=== PATIENT | female | born 1975 | race Caucasian/White ===

== ENCOUNTER 2019-01-24 06:23 | Inpatient (IN) | payer OTHER ==
[2019-01-24] MEDS ORDERED: Sodium Chloride 0.9% 10 ML ONE (06:56)
[2019-01-24] MEDS ORDERED: Midazolam HCl 2 mg/2 ml Vial ONE (07:48)
[2019-01-24 07:57] LABS: #Basophils 0.1 thou/uL (0.0-0.2); #Eosinphils 0.5 thou/uL (0.0-0.7); #Monocytes 0.6 thou/uL (0.11-0.59); #Neutrophils 5.3 thou/uL (1.40-6.50); %Basophils 1.2 % (0.0-1.0); %Eosinophils 4.8 % (0.0-10.0); %Lymphocytes 31.3 % (21.0-51.0); %Monocytes 6.3 % (0.0-10.0); %Neutrophils 56.4 % (42.0-75.0); Hemoglobin 13.6 g/dL (12.0-16.0); Mean Corpuscular HGB CONC 33.7 g/dL (32.0-36.0); Mean Corpuscular Hemoglobin 29.7 pg (27.0-31.0); Mean Corpuscular Volume 88.2 fL (78.0-98.0); Platelet Count 266 thou/uL (130-400); RBC Distribution Width 12.8 % (11.5-14.5); Red Blood Cell (RBC) Count 4.58 mill/uL (4.20-5.40); White Blood Cell (WBC) Count 9.4 thou/uL (4.8-10.8)
[2019-01-24 08:10] LABS: Anion Gap 15 mmol/L (10-20); BUN (Urea Nitrogen) 10 mg/dL (7.0-18.7); Calc. Creatinine Clearance 119 mL/min (70-130); Calcium 9.3 mg/dL (7.8-10.44); Carbon Dioxide 24 mmol/L (22-29); Chloride 106 mmol/L (98-107); Estimated GFR-MDRD 63; Glucose 93 mg/dL (70-105); Potassium 3.8 mmol/L (3.5-5.1); Sodium 141 mmol/L (136-145)
[2019-01-24] MEDS ORDERED: Fentanyl 250 MCG/5 ML VIAL ONE (08:13)
[2019-01-24] MEDS ORDERED: Fentanyl 100 MCG/2 ML VIAL ONE ×3 (09:54→11:09)
[2019-01-24] MEDS ORDERED: Promethazine HCl 25 MG/ML VIAL SLOW IVP PRN (10:18)
[2019-01-24] MEDS ORDERED: Meperidine HCl/PF 25 MG/ML VIAL SLOW IVP PRN (10:18)
[2019-01-24] MEDS ORDERED: Ondansetron HCl/PF 4 MG/2 ML Vial IVP PRN (10:18)
[2019-01-24] MEDS ORDERED: Promethazine HCl 25 MG/ML VIAL IM PRN ×2 (10:18→11:52)
[2019-01-24] MEDS ORDERED: Glycopyrrolate 0.2 MG/ML 5 ML SYRINGE ONE (10:54)
[2019-01-24] MEDS ORDERED: Dexamethasone 20 MG/5 ML VIAL ONE (10:54)
[2019-01-24] MEDS ORDERED: Rocuronium Bromide 10 MG/ML (10ML VIAL) ONE (10:54)
[2019-01-24] MEDS ORDERED: ePHEDrine 50 MG/ML VIAL ONE (10:54)
[2019-01-24] MEDS ORDERED: Lidocaine 1% PF 5 ML VIAL ONE (10:54)
[2019-01-24] MEDS ORDERED: Ondansetron PF 4 MG/2 ML Vial ONE (10:54)
[2019-01-24] MEDS ORDERED: PHENYLEPHRINE-NS 100 MCG/ML 10 ML SYRINGE ONE (10:54)
[2019-01-24] MEDS ORDERED: PROPOFOL 200 MG/20 ML VIAL ONE (10:54)
[2019-01-24] MEDS ORDERED: Meperidine HCl/PF 25 MG/ML VIAL ONE (11:35)
[2019-01-24] MEDS ORDERED: Mag-Al 1200 mg/1200 mg/30 ML UDCUP PO PRN (11:52)
[2019-01-24] MEDS ORDERED: diphenhydrAMINE 50 MG/ML VIAL IVP PRN (11:52)
[2019-01-24] MEDS ORDERED: Promethazine 25 MG TAB PO PRN (11:52)
[2019-01-24] MEDS ORDERED: Ondansetron PF 4 MG/2 ML Vial IVP PRN (11:52)
[2019-01-24] MEDS ORDERED: Cyclobenzaprine 10 MG TAB PO PRN (11:52)
[2019-01-24] MEDS ORDERED: Milk Of Magnesia 30 ML UDCUP PO PRN (11:52)
[2019-01-24] MEDS ORDERED: Promethazine HCl 12.5 MG SUPP PR PRN (11:52)
[2019-01-24] MEDS ORDERED: diphenhydrAMINE 25 MG CAP PO PRN (11:52)
[2019-01-24 12:13] VITALS: BMI 39.0
[2019-01-24] MEDS: Morphine 4 MG/ML VIAL SLOW IVP PRN ×3 (12:57→20:29)
[2019-01-24] MEDS: Sodium Chloride 0.9% 1,000 ML IV SCH (12:58)
--- NOTE | 2019-01-24 13:29 | OP ---
DATE OF PROCEDURE: 01/24/2019 SPLIT LEATHER MOSSER: Darrin Escamilla PA-C PROCEDURES PERFORMED: Anterior cervical diskectomy, C4 through C7, interbody arthrodesis, intervertebral biomechanical device, local morselized autograft, demineralized bone matrix, anterior titanium instrumentation C4 through C7. DESCRIPTION OF PROCEDURE: The patient was brought to the operating room and intubated. She was positioned supine with head in modest extension on gel-filled donut. An incision was made in the right precervical area and dissected medial to the sternocleidomastoid muscle. We identified the anterior cervical spinal, and the level was confirmed by x-ray. We placed distraction across the disk spaces, and using the operative microscope and microdissection techniques, completely decompressed the intervertebral disks down the level of the dura at each affected level. After complete decompression was secured, the bony endplates were decorticated for the purpose of arthrodesis and appropriate-sized intervertebral biomechanical PEEK device was brought into the field. It was filled with demineralized bone matrix and local morselized autograft, and tapped in place securely at C4-C5, C5-C6, and C6-C7. Next, an anterior plate was brought into the field and secured at C4, C5, C6, and C7 using two 14-mm screws at each level. The wound was then extensively irrigated and MAC hemostasis was secured. The wound was closed in anatomic layers over drain. Job ID: [id number]
[2019-01-24] MEDS: HYDROcodone/Acetaminophen 10/325 mg Tablet PO PRN ×2 (13:56→18:05)
[2019-01-24] MEDS: CEFAZOLIN 2 GM in Premix Bag 1 BAG IVPB SCH ×2 (14:20→21:15)
[2019-01-24] MEDS ORDERED: PARoxetine CR 12.5 MG TAB PO SCH (21:00)
[2019-01-25] MEDS: Sodium Chloride 0.9% 1,000 ML IV SCH (04:20)
[2019-01-25] MEDS ORDERED: Thyroid 60 MG TAB PO SCH (06:00)
[2019-01-25] MEDS: HYDROcodone/Acetaminophen 10/325 mg Tablet PO PRN ×2 (06:03)
[2019-01-25] MEDS: CEFAZOLIN 2 GM in Premix Bag 1 BAG IVPB SCH (06:05)
[2019-01-25 08:05] VITALS: BP 118/59; TEMP 97.9
[2019-01-25] MEDS: Morphine 4 MG/ML VIAL SLOW IVP PRN (08:22)
--- NOTE | 2019-01-25 10:02 | DIS ---
DATE OF ADMISSION: 01/24/2019 DATE OF DISCHARGE: 01/25/2019 HOSPITAL COURSE: The patient is a 43-year-old female, status post C4-C7 ACDF. Following surgery, she was transitioned to the floor, where her pain was well controlled with p.o. medications, she is tolerating a regular diet, and she was voiding appropriately. [place] drain was placed intraoperatively and 25 mL out overnight. This was removed on postoperative day #1 by myself at the bedside. On exam, postoperative day #1, the patient is awake, alert, in no acute distress. She has free active range of motion of all extremities. No focal motor weakness or reflex asymmetry. Her incision was clean, dry, and intact. We will plan to dismiss the patient to home. I have discussed home care and precautions. We will follow up the patient in 2 weeks in the office. Job ID: [id number]
== END 2019-01-25 09:00 | disposition home or self-care (01) | DRG 473 ==
LOC: SURG A 06:23 → ONC 11:56 → EDSTATUS 16:45
PROVIDERS: ADMIT Neurological Surgery; ATTEND Neurological Surgery
PROC: 0RG20A0 Fusion of 2 or more Cervical Vertebral Joints with Interbody Fusion Device, Anterior Approach, Anterior Column, Open Approach (ICD-10-PCS; principal; 2019-01-24)
PROC: 0RB30ZZ Excision of Cervical Vertebral Disc, Open Approach (ICD-10-PCS; 2019-01-24)
DX: M47.12 Other spondylosis with myelopathy, cervical region (principal); E03.9 Hypothyroidism, unspecified; F41.9 Anxiety disorder, unspecified; Z90.49 Acquired absence of other specified parts of digestive tract; Z90.710 Acquired absence of both cervix and uterus; Z88.8 Allergy status to other drugs, medicaments and biological substances
CPT/HCPCS: 76000; 80048; 85025; 93005; 93010; C1713; C1776; J0131; J0690; J1100; J2001; J2175; J2250; J2270; J2405; J2704; J3010; J3490